=== PATIENT | female | born 1990 | race Caucasian/White ===

== ENCOUNTER 2021-11-19 16:40 | Emergency (ER) | payer OTHER, SELFPAY ==
--- NOTE | ~2021-11-19 | CT_ITS ---
EXAMINATION: CT brain wo con DATE: 11/19/2021 20:46 INDICATION: Headache. Hypertension. TECHNIQUE: Computed tomography (CT) of the head was performed without intravenous contrast. The mA wa s adjusted according to patient size. Iterative reconstruction technique was employed. Exam dose: 60 5.33 mGy-cm total exam DLP. COMPARISON: None FINDINGS: No intracranial mass lesion or hemorrhage or cerebrovascular accident. No midline shift or mass effect effect. Normal moser-white matter differentiation. Normal ventricular size. No subdural or epidural hematoma is detected. The mastoid air cells and included paranasal sinuses are normally developed and aerated. No fracture or bone destruction of the cranial vault. IMPRESSION: Negative Reviewed, dictated and finalized at [facility]. Reviewed, dictated and finalized at [facility]. IMPRESSION: Negative
[2021-11-19 17:01] VITALS: BP 203/119; PULSE 83; RESP 16; TEMP 36.6; O2SAT 100
--- NOTE | 2021-11-19 17:04 | ECG_ITS ---
Measurements Intervals [place] Rate: 79 P: 55 VA: 162 QRS: 52 QRSD: 98 T: -28 QT: 355 QTc: 408 Interpretive Statements SINUS RHYTHM WITH SINUS ARRHYTHMIA POSSIBLE LEFT ATRIAL ENLARGEMENT [-0.1mV P WAVE IN V1/V2] MODERATE T-WAVE ABNORMALITY, CONSIDER INFERIOR ISCHEMIA VERSUS LVH NO PREVIOUS ECG AVAILABLE FOR COMPARISON Electronically Signed On 11-19-2021 20:41:34 CDT by Fernanda Montes M.D.
[2021-11-19 17:45] LABS: Basophils Percent Auto 0.3 % (0.2-1.2); Eosinophils Absolute Auto 0.1 K/mm3 (0-0.3); Eosinophils Percent Auto 0.8 % (0-4.4); Hematocrit 41.6 % (37.0-47.0); Hemoglobin 14.2 g/dL (12.0-15.0); Immature Granulocyte Absolute 0.01 K/mm3 (0.00-0.031); Immature Granulocyte Percent A 0.2 % (0-0.5); Lymphocytes Absolute Auto 2.46 K/mm3 (0.9-3.2); Mean Corpuscular HGB Conc 34.1 g/dl (32-36); Mean Corpuscular Hemoglobin 31.1 pg (26-34); Mean Corpuscular Volume 91.2 fl (80-100); Mean Platelet Volume 10.5 fl (7.4-10.4); Monocytes Absolute Auto 0.5 K/mm3 (0.1-0.6); Monocytes Percent Auto 7.6 % (2.6-8.5); Neutrophils Absolute Auto 3.5 K/mm3 (1.3-6.7); Neutrophils Percent Auto 53.1 % (45.5-73.1); Platelet Count Result 305 k/mm3 (150-375); Red Blood Count 4.56 M/mm3 (4.2-5.4); White Blood Count 6.5 K/mm3 (4.5-10.0)
[2021-11-19 17:55] LABS: Alanine Aminotransferase 20 U/L (6-35); Albumin Level 4.6 g/dL (3.5-5.1); Alkaline Phosphatase 53 U/L (38-126); Anion Gap 4 mmol/L (8-16); Aspartate Amino Transferase 26 U/L (14-36); Bilirubin,Total 0.6 mg/dL (0.2-1.3); Blood Urea Nitrogen 13 mg/dL (7-17); Calcium 9.2 mg/dL (8.4-10.2); Carbon Dioxide 27 mmol/L (22-30); Chloride 105 mmol/L (98-107); Estimated Glomerular Filt Rate > 60; Glucose 104 mg/dL (65-110); Potassium 4.1 mmol/L (3.4-5.0); Sodium 136 mmol/L (137-145)
--- NOTE | 2021-11-19 18:53 | PC.NURSE ---
pt up to triage desk asking for wait time. explained to pt we bring pt back based on priority of emergency. pt states i know, I'm a PA . pt requesting EKG. EKG to be done on pt in triage.
[2021-11-19 19:02] VITALS: BP 176/106; PULSE 88
--- NOTE | 2021-11-19 20:31 | ED.HA ---
HPI - Headache General Chief Complaint: Headache <HELENA Paniagua Last Filed: 11/19/21 22:09> Stated Complaint: htn/headache, procedure at [facility] today <HELENA Paniagua Last Filed: 11/19/21 22:09> Time Seen by Provider: 11/19/21 20:04 <HELENA Paniagua Last Filed: 11/19/21 22:09> Source: patient <HELENA Paniagua Last Filed: 11/19/21 22:09> Mode of arrival: ambulatory <HELENA Paniagua Last Filed: 11/19/21 22:09> Limitations: no limitations <HELENA Paniagua Last Filed: 11/19/21 22:09> History of Present Illness HPI Narrative: This is a 28 year old female that presents to the ER for headache. Present today. Reports a diffuse aching pain. She does have history of migraines. She had an endoscopy this morning and was noted to have elevated blood pressure. She was given a dose of labetalol after her procedure with improvement. Reports when she got home she started having a headache. She took her blood pressure at home and it was still elevated. She does note that she was borderline hypertensive prior. She was trying to manage this with weight loss and diet as she did not want to be started on any medications yet. Denies chest pain, shortness of breath, or lower extremity edema. <HELENA Paniagua Last Filed: 11/19/21 22:09> Related Data Allergies/Adverse Reactions: Allergies Allergy/AdvReac Type Severity Reaction Status Date / Time No Known Allergies Allergy Verified 11/19/21 20:58 <HELENA Paniagua Last Filed: 11/19/21 22:09> Review of Systems Review of Systems: CONSTITUTIONAL: Denies fever EYES: Denies visual changes CARDIOVASCULAR: Denies chest pain, or edema. RESPIRATORY: Denies dyspnea. GASTROINTESTINAL: Denies vomiting NEUROLOGIC: Reports headache. Denies numbness, or weakness. <HELENA Paniagua Last Filed: 11/19/21 22:09> All systems reviewed & are unremarkable except as noted in HPI and below <Becky Jewell PA-C - Last Filed: 11/19/21 22:09> [facility] Past Medical History Medical History: Medical History (Updated 11/20/21 @ 00:00 by Winsome Mcmahon) History of gastroesophageal reflux (GERD) <Becky Jewell PA-C - Last Filed: 11/19/21 22:09> Surgical History Surgical History: Surgical History (Updated 11/19/21 @ 20:36 by Becky Jewell PA-C) History of esophagogastroduodenoscopy (EGD) <Becky Jewell PA-C - Last Filed: 11/19/21 22:09> Social History Social History: Social History (Updated 11/19/21 @ 20:36 by Becky Jewell PA-C) Smoking status: Never smoker <Becky Jewell PA-C - Last Filed: 11/19/21 22:09> Exam Narrative: GENERAL: Well-appearing, well-nourished, and in no acute distress. HEAD: Normocephalic, atraumatic. EYES: PERRLA and EOMI. ENT: Nares clear, no rhinorrhea or epistaxis. Mucous membranes moist. Oropharynx without tonsillar hypertrophy exudate or other lesions. Bilateral TMs pearly moser non-bulging NECK: Supple. No adenopathy or masses. CHEST: Clear to auscultation. No respiratory distress. No wheezes rales or rhonchi HEART: Regular rate and rhythm. No murmur heard. Normal peripheral pulses. EXTREMITIES: Normal range of motion. No edema. Strength equal in bilateral upper and lower extremities (5/5) SKIN: Warm, dry, no rash. NEURO: No focal deficits. Alert and oriented x3. Cranial nerves II through XII grossly intact PSYCH: Normal mood and affect <Becky Jewell PA-C - Last Filed: 11/19/21 22:09> Course INSIDE UPHOLSTERER/PA Physician Supervision I did not see this patient nor was the care plan discussed with me, labs and imaging reviewed I was available for evaluation and consultation, I agree with the documentation <Hayden Goins MD - Last Filed: 11/20/21 00:05> Consultations Consultation #1: Spoke with patient's primary about work-up. Patient will be started on amlodipine and is to follow-up outpatient. <HELENA Paniagua La
[2021-11-19 20:58] LABS: Troponin I < 0.012 ng/mL (0.000-0.034)
[2021-11-19] MEDS: diphenhydrAMINE HCl INJ 50 MG/ML VIAL 25 MG IV PUSH (21:14)
[2021-11-19] MEDS: METOCLOPRAMIDE HCL INJ 10 MG/2 ML VIAL IV PUSH (21:15)
[2021-11-19 21:38] VITALS: BP 139/85; PULSE 77; RESP 12; O2SAT 99
[2021-11-19 22:53] VITALS: BP 157/96; PULSE 82; RESP 13; O2SAT 99
== END 2021-11-19 22:49 | disposition home or self-care (01) ==
PROVIDERS: Emergency Medicine; Physician Assistant; Emergency Provider Emergency Medicine; PCP Physician Assistant
DX: I10 Essential (primary) hypertension (principal); R51.9 Headache, unspecified
CPT/HCPCS: 36415; 70450; 80053; 84484; 85025; 93005; 96365; 96375; 99284; J0131; J1200; J2765

== ENCOUNTER 2021-11-22 02:04 | Emergency (ER) | payer OTHER, SELFPAY ==
[2021-11-22] VITALS (18 sets, daily range): BP systolic 142–181; BP diastolic 89–118; PULSE 79–107; RESP 13–20; TEMP 37.1; O2SAT 93–99
--- NOTE | ~2021-11-22 | XR_ITS ---
EXAMINATION: XR chest 2V 11/22/2021 03:46 INDICATION: Chest palpitations PROCEDURE: 2 view chest COMPARISON: No prior studies for comparison. FINDINGS: The lungs are clear. The cardiomediastinal silhouette is within normal limits. There are no pleural effusions. There is no pneumothorax suspected. IMPRESSION: 1: NO ACUTE CARDIOPULMONARY DISEASE. Reviewed, dictated and finalized at [facility].
--- NOTE | 2021-11-22 02:15 | ECG_ITS ---
Measurements Intervals [place] Rate: 107 P: 46 SC: 151 QRS: 56 QRSD: 102 T: -63 QT: 333 QTc: 444 Interpretive Statements SINUS TACHYCARDIA ST DEVIATION AND MODERATE T-WAVE ABNORMALITY, CONSIDER LATERAL ISCHEMIA [-0.1+ mV T WAVE IN I/aVL/V5/V6] ST DEVIATION AND MODERATE T-WAVE ABNORMALITY, CONSIDER INFERIOR ISCHEMIA [-0.1+ mV T WAVE IN II/aVF] COMPARED TO ECG 11/19/2021 18:58:46 SINUS TACHYCARDIA NOW PRESENT Electronically Signed On 11-22-2021 11:06:15 CDT by Cornel Strong M.D.
--- NOTE | 2021-11-22 02:54 | ED.ARRPALP ---
HPI - Arrhythmia/Palpitations General Chief Complaint: Arrhythmia/Palpitations Stated Complaint: FAST HR Time Seen by Provider: 11/22/21 02:17 Source: patient History of Present Illness HPI narrative: Patient presents with palpitations. Patient ports history of SVTs PACs and PVCs. She sees a supervisor extrusion in [facility] but is currently in the process of moving and transitioning her care. Reports she was seen few days ago treated for migraine headache felt improved after supportive therapies but also have some hypertension she is started on amlodipine with palpitations her primary care doctor. Tonight she kept waking up from sleep feeling flushed and felt like her heart was racing this is slightly different than her presentation a couple days ago. She had a hard time resting today so she came to the ER for further evaluation. Reports overall she is feeling improved since coming to the ER. She reports her headache is greatly improved she is continued have intermittent back pain when she had an EGD for which reportedly negative. She reports mild shortness of breath as well. Denies any fevers cough or congestion. Related Data Allergies Allergy/AdvReac Type Severity Reaction Status Date / Time No Known Allergies Allergy Verified 11/22/21 02:12 Review of Systems Review of Systems: CONSTITUTIONAL: Denies fever, chills, or sweats. EYES: Denies visual changes, redness, or discharge. ENT: Denies rhinorrhea, congestion, sore throat, or otalgia. CARDIOVASCULAR: Denies chest pain, or edema. RESPIRATORY: Denies cough. GASTROINTESTINAL: Denies abdominal pain, nausea, vomiting, or diarrhea. GENITOURINARY: Denies dysuria or hematuria. SKIN: Denies rash or itching. MUSCULOSKELETAL: Denies back pain, joint pain, or myalgia. NEUROLOGIC: Denies headache, numbness, dizziness, or weakness. PSYCHIATRIC: Denies anxiety or depression. All systems reviewed & are unremarkable except as noted in HPI and below PMFSH Past Medical History Medical History History of gastroesophageal reflux (GERD) Surgical History Surgical History History of esophagogastroduodenoscopy (EGD) Social History Social History Smoking status: Never smoker Exam Narrative: GENERAL: Well-appearing, well-nourished, and in no acute distress. HEAD: Normocephalic, atraumatic. EYES: PERRLA and EOMI. ENT: Nares clear, no rhinorrhea or epistaxis. Mucous membranes moist. NECK: Supple. No masses. No JVD CHEST: Clear to auscultation. No respiratory distress. No wheezes rales or rhonchi HEART: Regular rate and rhythm. No murmur heard. Normal peripheral pulses. ABDOMEN: Soft, nontender, nondistended, normal active bowel sounds. EXTREMITIES: Normal range of motion. No edema. SKIN: Warm, dry, no rash. NEURO: No focal deficits. Alert and oriented x3. PSYCH: Normal mood and affect. Course Reevaluation(s) Reevaluation #1: Patient resting comfortably reports feeling improved. Results and plan reviewed with patient. Patient is comfortable with the outpatient plan. Patient would like to discontinue the amlodipine and she thinks maybe that is a contributing factor it is a reasonable and safe plan. Patient like to hold off on initiating new medications she is in the process of moving and would like to establish care with a new primary care doctor. Date: 11/22/21 Time: 04:21 Vital Signs Vital signs: Vital Signs Temperature 37.1 C 11/22/21 02:04 Pulse Rate 107 H 11/22/21 02:04 Respiratory Rate 15 11/22/21 02:04 Blood Pressure 168/118 H 11/22/21 02:04 Pulse Oximetry 98 11/22/21 02:04 Oxygen Delivery Room Air 11/22/21 02:04 Temperature 37.1 C 11/22/21 02:04 Pulse Rate 98 11/22/21 04:15 Respiratory Rate 18 11/22/21 04:15 Blood Pressure 147/95 H 11/22/21 04:01 Pulse Oximetry
[2021-11-22] MEDS: SODIUM CHLORIDE 0.9% IV 1,000 ML 999 ML IV CONT (03:03)
[2021-11-22 03:16] LABS: Basophils Percent Auto 0.3 % (0.2-1.2); Eosinophils Percent Auto 0.3 % (0-4.4); Hematocrit 40.2 % (37.0-47.0); Hemoglobin 13.9 g/dL (12.0-15.0); Immature Granulocyte Absolute 0.01 K/mm3 (0.00-0.031); Immature Granulocyte Percent A 0.1 % (0-0.5); Lymphocytes Absolute Auto 1.56 K/mm3 (0.9-3.2); Lymphocytes Percent Auto 23.4 % (18.3-44.2); Mean Corpuscular HGB Conc 34.6 g/dl (32-36); Mean Corpuscular Hemoglobin 30.8 pg (26-34); Mean Corpuscular Volume 89.1 fl (80-100); Mean Platelet Volume 10.1 fl (7.4-10.4); Monocytes Absolute Auto 0.5 K/mm3 (0.1-0.6); Monocytes Percent Auto 7.8 % (2.6-8.5); Neutrophils Absolute Auto 4.6 K/mm3 (1.3-6.7); Neutrophils Percent Auto 68.1 % (45.5-73.1); Platelet Count Result 306 k/mm3 (150-375); Red Blood Count 4.51 M/mm3 (4.2-5.4); Red Cell Distribution Width 11.9 % (11.5-14.5); White Blood Count 6.7 K/mm3 (4.5-10.0)
[2021-11-22 03:24] LABS: Alanine Aminotransferase 19 U/L (6-35); Albumin Level 4.3 g/dL (3.5-5.1); Alkaline Phosphatase 59 U/L (38-126); Anion Gap 9 mmol/L (8-16); Aspartate Amino Transferase 23 U/L (14-36); Bilirubin,Total 0.8 mg/dL (0.2-1.3); Blood Urea Nitrogen 14 mg/dL (7-17); Calcium 8.7 mg/dL (8.4-10.2); Carbon Dioxide 22 mmol/L (22-30); Chloride 106 mmol/L (98-107); Estimated CRCL calculation 125 ml/min; Estimated Glomerular Filt Rate > 60; Glucose 119 mg/dL (65-110); Potassium 3.6 mmol/L (3.4-5.0); Sodium 137 mmol/L (137-145)
[2021-11-22 03:27] LABS: Appearance Urine Clear (Clear); Bilirubin Urine Negative (Negative); Blood Urine 2+ (Negative); Color Urine Yellow (Yellow); Glucose Urine UA Negative (Negative); Ketones Urine 1+ mg/dL (Negative); Leukocyte Esterase Ur Negative LEU/UL (Negative); Nitrate Urine Negative (Negative); Protein Urine 2+ mg/dL (Negative); Urobilinogen Urine 0.2 mg/dL (<2.0)
[2021-11-22 03:29] LABS: D Dimer 0.29 ug/mL (<0.48)
--- NOTE | 2021-11-22 03:34 | PC.NURSE ---
Patient taken to xray at this time.
[2021-11-22 03:35] LABS: Troponin I < 0.012 ng/mL (0.000-0.034)
[2021-11-22 03:35] LABS: Mucus Urine Rare /lpf; Squamous Epithelial Cell Urine Occasional /hpf (Few)
[2021-11-22 03:41] LABS: Add Urine Microscopic? YES
[2021-11-22 03:54] LABS: Thyroid Stimulating Hormone 0.701 uIU/mL (0.465-4.680)
--- NOTE | 2021-11-22 04:21 | PC.NURSE ---
Patient states she is feeling much better and is ready to go home.
== END 2021-11-22 04:32 | disposition home or self-care (01) ==
PROVIDERS: Emergency Provider Emergency Medicine; PCP Physician Assistant
DX: R00.2 Palpitations (principal); I10 Essential (primary) hypertension; K21.9 Gastro-esophageal reflux disease without esophagitis; R00.0 Tachycardia, unspecified; R94.31 Abnormal electrocardiogram [ECG] [EKG]
CPT/HCPCS: 36415; 71046; 80053; 81001; 81025; 84443; 84484; 85025; 85380; 93005; 96360; 99284; J7030